=== PATIENT | male | born 1975 | race Caucasian/White ===

== ENCOUNTER → 2017-07-27 | Day surgery (SDC) | payer OTHER ==
[~2017-07-27] VITALS: Ht 182.9 cm; Wt 148.6 kg
[~2017-07-27] MED LIST: ACETAMINOPHEN 325 MG TAB PO PRN; ASPI325T45 PO; ATROPINE SULFATE 0.1 MG/ML 5ML SYR IV PRN; CARV25TA2 PO; CLOP1TAB15 PO; DC ALL ANTICOAGULANTS ONE; FENTANYL CITRATE INJ 50 MCG/1 ML 2 ML VIAL ONE; HEPARIN SOD (PORCINE) 1000 UNIT/ML 10 ML VIAL ONE; LEVO200T6 PO; LEVO50TA6 PO; LIDOCAINE HCL 1% 20 ML VIAL ONE; LISI10TA PO; MIDAZOLAM HCL 1 MG/ML 2ML VIAL ONE; NITROGLYCERIN/D5W 100MCG/ML 20ML SYR ONE; NiCARDipine HCL INJ 2.5 MG/ML 10 ML AMP ONE; ONDANSETRON INJ 2 MG/ML 2 ML VIAL IV PRN; RANI150T85 PO; ROSU40TA PO; SODIUM CHLORIDE 0.9% 1000ML 1,000 ML IV SCH; SODIUM CHLORIDE 0.9% 1000ML 250 ML IV PRN
[2017-07-27 09:56] VITALS: BP 121/80; PULSE 63; TEMP 36.7; O2SAT 98; Ht 182.9 cm; Wt 148.6 kg
--- NOTE | 2017-07-27 11:04 | History & Physical Bridge Note ---
H&P Re-Evaluation Bridge Note: I have examined the patient, reviewed the History & Physical and in the interval since the performance of the History & Physical I have noted the following changes of clinical significance: No changes noted. The patient was seen and evaluated in the [facility] holding area. I have explained the risk benefit and intent of the procedure to him including the potential for catheter based intervention such as balloon angioplasty or intracoronary stents. He is willing to proceed.
--- NOTE | 2017-07-27 12:18 | Procedure Note ---
Cardiac Cath Report Procedure: 1. Left heart catheterization 2. Coronary angiography 3. Left ventriculogram History: This is a 41-year-old male patient with early atherosclerotic vascular disease. He had a stent placed at [facility] approximately 10 years ago. He presented with new onset exertional angina and has been referred for cardiac catheterization. Procedure summary: The patient was seen and evaluated in the holding area the Language Pathologist. After informed consent was obtained the patient was prepped and draped in the usual manner for right transradial approach. Preformed 5 Honduran diagnostic catheters were utilized for the coronary angiograms. A 5 [place]uran pigtail catheter was utilized for the left heart pressures and left ventriculogram. Following the procedure the patient was returned to the holding area the Language Pathologist in stable condition. Coronary angiography: Selective injections of the left coronary artery revealed the left main trunk to be patent. The LAD is diffusely diseased. There is an 80% narrowing just after the takeoff of the first septal freelance patternmaker and a second 80% narrowing more distally. The artery goes around the apex of the heart. Several diagonals are diffusely diseased. The left circumflex artery is consists of 2 large marginal branches. There is an intra-coronary stent in the mid segment after the first marginal branch. The first marginal branch is subtotaled at its origin. Second marginal branch has mild diffuse disease. While injecting the left coronary artery there is evidence of collaterals to the distal right coronary artery. Selective injections of the right coronary artery reveal diffusely diseased artery with the distal portion just after the takeoff of the marginal there is a subtotal stenosis the remainder of the artery is diffusely diseased. Left ventriculogram: The left ventricle is of normal size with normal systolic function. Mitral valve is competent. The aortic root and ascending aorta have normal morphology and diameter. The LVEDP is 15. Summary: The patient has severe three-vessel coronary artery disease as described above. Normal LV function. Recommendations: The patient will be evaluated by cardiothoracic surgery for coronary artery bypass.
--- NOTE | 2017-07-27 12:22 | Cardiac Catheterization ---
Procedure Note Procedure Date Jul 27, 2017. Pre-Procedure Diagnosis Angina AUC Score 9 Post-Procedure Diagnosis Severe CAD, Normal LV Systolic Function Procedure(s) Performed Coronary Angiography, Left Heart Cath, LV Angiography It Recruiter Dr. Chris Two Needle Machine Operator(s) None Estimated Blood Loss None Medication(s) Heparin, Versed, Lidocaine 1% Summary of Findings See dictated report. Hemodynamics Rest Ao: 82/66 Final Ao: 111/70 LV: 129/15 Recommendations CABG Specimens None Radiation Exposure (mGy) 3048 Contrast (mls) 183 Procedural Complication(s) None Disposition Cable Splicer Holding/Recovery ACC Data Cardiac Status Clinical evaluation leading to the procedure CAD Presntation: Stable angina Anginal Classification: CCS III Heart Failure: No Cardiogenic Shock w/in 24Hrs: No Cardiac Arrest w/in 24Hrs: No Imaging studies past 6 months: Yes Stress studies past 6 months: No Coronary Anatomy Dominant: Right Left Main (% Stenosis): Distal (80%), Normal LAD (% Stenosis): Proximal (80%) OM1 (% Stenosis): Ostial (90%) RCA (% Stenosis): Mid (90%) Left Ventricular Angiography EF (%): 60% Diagnostic Status: Urgent Closure Device Percutaneous Entry Location: Radial Closure Device: Radial Band Recommendations: CABG
--- NOTE | 2017-07-27 12:26 | Discharge Instructions ---
Discharge Instructions Procedure Procedure Date: Jul 27, 2017. Reason for Visit: Abnormal Stress Test Dr Chris To Do. Discharge Discharge Date: Jul 27, 2017. Discharge Diagnosis: Coronary artery disease Last Recorded Wt (Kilograms): 148.6 Anesthesia Post Anesthesia Instructions: If you have had General Anesthesia or IV Sedation: * Do not drive today. * Resume driving when surgeon permits. * Do not make important decisions or sign legal documents today. * Call surgeon for: 1. Temperature elevations greater than 101 degrees F. 2. Uncontrollable pain. 3. Excessive bleeding. 4. Persistent nausea and vomiting. 5. Medication intolerance (nausea, vomiting or rash). * For nausea and vomiting use only clear liquids such as: tea, soda, bouillon until nausea subsides, then gradually increase diet as tolerated. * If you have any concerns or questions, call your surgeon's office. If physician is unavailable and it is an emergency, call 911 or go to the nearest emergency room. Instructions Activity Recommendations: limitations Recommended Home Diet: resume previous diet Allergies: Coded Allergies: No Known Allergies (Unverified , 07/27/17) Provider Instructions ACTIVITY RECOMMENDATIONS: Excess manipulation of the wrist should be avoided for the next 24-48 hours. * No lifting over 2 pounds (approximately a 1/2 gallon of milk) with the utilized arm for 24 hours. * No strenuous activity such as bowling or tennis for 3 days. * Keep the site of the procedure covered with a bandage for 24 hours. *You may shower the day after the procedure. Do not take a tub bath or submerge the puncture site in water for the next 3 days. *Do not operate any motorized equipment for 3 days. SPECIAL CARE INSTRUCTIONS: The site may be slightly bruised and sore following your procedure. Should any of the following occur, contact the DrDarrion who performed your procedure. 1. Redness/inflammation, swelling, chills, or fever, or colored drainage at procedure site within 3-7 days after your procedure. 2. Coldness, discoloration, ongoing numbness, severe pain, or swelling. Expect mild tingling of hand and tenderness at the puncture site for up to three days. If this persists beyond three days, or other symptoms develop, notify the DrDarrion who performed your procedure. BLEEDING: If the procedure site on your wrist begins to bleed, do not panic 1. Place 1 or 2 fingers firmly just slightly above the insertion site to stop the bleeding. You may be able to feel your pulse as you hold pressure. 2. Lift your finger after 5 minutes to see if the bleeding has stopped. 3. Once the bleeding has stopped, gently wipe the wrist area clean with a bandage. * If the bleeding from your wrist does not stop after 10 minutes, or if there is a large amount of bleeding or spurting, call 911 (do not drive yourself to the hospital). SKIN IRRITATION: * You may experience some redness and/or swelling in the area where radiation was administered. If any skin irritation occurs, please contact your family physician. FOLLOW UP VISIT: Keep any scheduled doctor appointments. Follow Up Follow-up with: The patient will receive a phone call from our office regarding a follow-up with the cardiothoracic surgeon. [employer] Recommendations: Call your doctor if: * Temperature above 101 degrees * Pain not relieved by pain medicine ordered * There is increased drainage or redness from any incision * You have any unanswered questions or concerns. Your Doctors Instructions noted above were prepared by provider Eitan Chris. Patient Signature Section: Patient Instructions Signature Page Travis Regalado Patient (or Guardian) Signature/Date: I have read and understand the instructions given to me by my caregivers. Caregiver/RN/Doctor Signature/Date: The above-named patient and/or guardian has received patient instructions on this date. + Original Patient Signature Page (only) stays with chart. Please make copy for patient.
[2017-07-27 15:00] VITALS: BP 120/67; PULSE 70; O2SAT 96
== END | disposition home or self-care (01) ==
LOC: C.CATH 09:28
PROVIDERS: ATTEND Internal Medicine Interventional Cardiology
DX: I25.119 Atherosclerotic heart disease of native coronary artery with unspecified angina pectoris (principal); E78.5 Hyperlipidemia, unspecified; I10 Essential (primary) hypertension; G47.33 Obstructive sleep apnea (adult) (pediatric); Z82.49 Family history of ischemic heart disease and other diseases of the circulatory system; Z87.891 Personal history of nicotine dependence; Z79.82 Long term (current) use of aspirin; Z79.02 Long term (current) use of antithrombotics/antiplatelets; Z79.899 Other long term (current) drug therapy